=== PATIENT | male | born 1955 | race Asian ===

== ENCOUNTER → 2018-03-24 | Outpatient (CLI) | payer OTHER ==
[~2018-03-24] MED LIST: ALLO300T PO; AMLO2.5T3 PO; ASPI-496 PO; CARV12.52 PO; CHOL10002 PO; CYAN1TAB29 PO; FENO145T30 PO; KRIL1CAP5 PO; LISI-170 PO; MULT-658 PO; SIMV20TA3 PO
== END | disposition home or self-care (01) ==
LOC: CVU 07:21
PROVIDERS: ATTEND Internal Medicine Cardiovascular Disease
DX: I83.813 Varicose veins of bilateral lower extremities with pain (principal)
CPT/HCPCS: 93970

== ENCOUNTER 2018-11-20 14:24 | Outpatient (CLI) | payer OTHER ==
[~2018-11-20 14:24] MED LIST changes: -AMLO2.5T3 PO; +AMLO2.5T5 PO
== END 2018-11-20 23:59 | disposition home or self-care (01) ==
LOC: CVU 14:24
PROVIDERS: ATTEND Internal Medicine Cardiovascular Disease
DX: I10 Essential (primary) hypertension (principal); E78.5 Hyperlipidemia, unspecified
CPT/HCPCS: 93306